=== PATIENT | female | born 2005 | race Caucasian/White ===

== ENCOUNTER 2025-04-13 13:46 | Outpatient (OUT) | payer OTHER, SELFPAY ==
--- NOTE | 2025-04-13 | XR_ITS ---
[address] [address] Patient Name: CYDNEY MAGANA MRN: [id number] date: 2005 Sex: F Assigned Patient Location: RAD Current Patient Location: [facility] Accession/Order Number: [id number] Exam Date: 04/13/2025 14:49 Report Date: 04/13/2025 14:50 At the request of: NON-STAFF PHYSICIAN MD Procedure: XR shoulder LT min 2V LEFT SHOULDER - - 3 views CLINICAL HISTORY: Pain in unspecified shoulder M25.519 COMPARISON: None FINDINGS: Joint spaces appear maintained. No acute bony process. XR/XR shoulder LT min 2V IMPRESSION: No acute bony process. Impression dictated by: Dez Rea Jr., DJayOJay 04/13/2025 2:50 PM Dictation Location: [place] [address] Electronically authenticated by: [id number] Y Date: 04/13/2025 14:50
== END 2025-04-13 13:47 | disposition home or self-care (01) ==
PROVIDERS: Visit Provider Nurse Practitioner
DX: M25.512 Pain in left shoulder (principal)
CPT/HCPCS: 73030